=== PATIENT | male | born 1950 | race Caucasian/White ===

== ENCOUNTER 2019-03-20 12:28 | Emergency (ER) | payer OTHER, MEDICARE ==
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
== END 2019-03-20 14:05 | disposition home or self-care (01) ==
LOC: LB.ED 12:28
DX: Z04.1 Encounter for examination and observation following transport accident (principal)
CPT/HCPCS: 99001; 99282